=== PATIENT | male | born 1965 | race Caucasian/White ===

== ENCOUNTER 2019-01-14 12:03 | Emergency (ER) | payer MEDICARE ==
[~2019-01-14] VITALS: Ht 180.3 cm; Wt 80.0 kg
[~2019-01-14 12:03] MED LIST: BETA15CR4 TOP; HYDR1TAB
--- NOTE | 2019-01-14 13:54 | NUR ---
PT IN R/T FALL AT HIS TRAILER A FEW DAYS AGO REPORT THAT HIS FEET WERE SWOLLEN BUT HAS GONE DOWN HE DID NOT COME EARLYER BECAUSE HE DID NOT HAVE A RIDE REPORTS THAT IT IS STILL TO PAINFUL TO WALK BUT SWELLING HAS GONE DOWN A LOT
[2019-01-14] MEDS ORDERED: ibuprofen tablet 400 MG TABLET PO ONE (14:10)
[2019-01-14] MEDS ORDERED: HYDROcodone/acetaminophen 10/325mg tab PO ONE (14:10)
[2019-01-14] MEDS ORDERED: ACET-3068 PO (15:47)
[2019-01-14 16:11] VITALS: BP 151/95
== END 2019-01-14 16:16 | disposition home or self-care (01) ==
LOC: ER 12:03
DX: M79.671 Pain in right foot (principal); M79.672 Pain in left foot; M25.562 Pain in left knee; R07.81 Pleurodynia; M25.572 Pain in left ankle and joints of left foot; M25.571 Pain in right ankle and joints of right foot; F12.90 Cannabis use, unspecified, uncomplicated; Z88.0 Allergy status to penicillin; Z79.899 Other long term (current) drug therapy; Z98.890 Other specified postprocedural states; W10.8XXA Fall (on) (from) other stairs and steps, initial encounter; Y93.89 Activity, other specified; Y92.89 Other specified places as the place of occurrence of the external cause; Y99.8 Other external cause status
CPT/HCPCS: 73610; 73630; 99284